=== PATIENT | female | born 1995 | race Caucasian/White ===

== ENCOUNTER → 2016-08-20 | Outpatient (CLI) | payer BC ==
[~2016-08-20] MED LIST: ACET1TAB25 PO; LEVO1TAB13 PO
--- NOTE | 2016-08-20 10:10 | DI ---
Indication: ITS.REASON: R22.9 LOCALIZED SWELLING, MASS AND LUMP, UNSPECIFIED PROCEDURE: MRI FEMUR RIGHT W/O CONTRAST: Encounter: Initial Comparison: None Technique: Multiplanar multisequence MR imaging of the right femur was performed without contrast Findings: The area of palpable abnormality was indicated with a marker. There is no subcutaneous or muscular abnormality seen in this location. Bone marrow signal intensity is normal. No acute fracture. No fluid collections seen. The soft tissues of the right hemipelvis are grossly normal. Impression: No acute abnormality seen. No clear etiology for the patient's symptoms. .
== END ==
LOC: IMA 07:34
PROVIDERS: ATTEND Family Medicine
DX: R22.41 Localized swelling, mass and lump, right lower limb (principal)